=== PATIENT | male | born 1945 | race Hispanic/Latino ===

== ENCOUNTER → 2023-09-24 | Outpatient (CLI) | payer OTHER | END | disposition home or self-care (01) | LOC: SHCH 11:48 | PROVIDERS: ATTEND Internal Medicine Cardiovascular Disease | DX: I87.2 Venous insufficiency (chronic) (peripheral) (principal) | CPT/HCPCS: 93970 ==

== ENCOUNTER 2024-05-20 19:50 | Observation (INO) | payer MEDICARE ==
[~2024-05-20] VITALS: Ht 172.7 cm; Wt 81.4 kg
--- NOTE | 2024-05-20 19:57 | NUR ---
UA CUP PROVIDED
--- NOTE | 2024-05-20 22:22 | NUR ---
PATIENT TO CT
--- NOTE | 2024-05-20 22:30 | NUR ---
BLADDER SCAN READ 300CC; ED NOTIFIED
[2024-05-20 22:32] LABS: BASOPHILS # (AUTO) 0.04 K/uL (0.00-0.20); BASOPHILS % (AUTO) 0.3 % (0.0-5.0); EOSINOPHILS # (AUTO) 0.07 K/uL (0.00-0.70); EOSINOPHILS % (AUTO) 0.5 % (0.0-8.0); HEMATOCRIT 35.4 % (42-54); IMMATURE GRANULOCYTE ABSOLUTE 0.07 K/uL (0-1); LYMPHOCYTES # (AUTO) 1.4 K/uL (1.0-4.8); LYMPHOCYTES % (AUTO) 10.3 % (21.0-51.0); MEAN CORPUSCULAR HEMOGLOBIN 31.8 pg (27.0-33.0); MEAN CORPUSCULAR HGB CONC 33.1 g/dL (32.0-36.0); MEAN CORPUSCULAR VOLUME 96.2 fL (79-99); MONOCYTES # (AUTO) 0.8 K/uL (0.1-1.0); MONOCYTES % (AUTO) 5.7 % (3.0-13.0); NEUTROPHILS % (AUTO) 82.7 % (40.0-77.0); PLATELET COUNT (AUTO) 206 K/uL (130-400); RED BLOOD CELL COUNT(AUTO) 3.68 MIL/uL (4.50-6.20); RED CELL DISTRIBUTION WIDTH 12.4 % (11.0-15.5); WHITE BLOOD COUNT (AUTO) 13.3 K/uL (4.8-10.8)
--- NOTE | 2024-05-20 22:41 | HMCIMG ---
CT ABDOMEN/PELVIS W/O CONTRAST HISTORY: Abdominal pain COMPARISON: None TECHNIQUE: Multiple sequential axial images of the abdomen and pelvis were obtained from the dome of the diaphragm through symphysis pubis. Patient was not given contrast through intravenous route. Oral contrast was not given. FINDINGS: No pleural effusion is seen bilaterally. There is no evidence of parenchymal disease or pulmonary nodule of the visualized lower lungs. Degenerative changes of the thoracolumbar spine are present. The heart is not enlarged. Small hiatal hernia is seen. Coronary arterial calcifications are seen. The liver measures 18 cm. Calcified granuloma are seen in the spleen. Gallstones are seen in the gallbladder. Small bowel dilatation is seen with fluid-filled may be related to enteritis. The liver, spleen, adrenal glands and pancreas are unremarkable. There is no evidence of hydronephrosis bilaterally. No evidence of renal stone is seen. Fecal material is seen in the colon. There are normal size retroperitoneal and mesenteric lymph nodes. No ascites is seen. Atherosclerotic changes are present. No CT evidence of acute appendicitis is seen. Pelvic sidewalls are symmetric bilaterally. Bladder is well distended without wall thickening. IMPRESSION: 1. Gallstones in the gallbladder. Small bowel dilatation with fluid-filled may be related to enteritis. CT was performed with one or more following dose reduction techniques: automated exposure control, adjustment of the mA and kv according to patient's size, or use of a iterative reconstruction technique.
[2024-05-20 22:50] LABS: CREATININE 2.3 mg/dL (0.5-1.3); POTASSIUM 4.7 mmol/L (3.5-5.1)
[2024-05-21] VITALS (7 sets, daily range): BP systolic 138–171; BP diastolic 58–79; PULSE 79–94; RESP 18–20; TEMP 98.1–99; O2SAT 94–97
--- NOTE | 2024-05-21 00:32 | ERN ---
General Chief Complaint: Multiple Complaints Stated Complaint: HAVING TROUBLE GOING TO RR, HIGH BLOOD PRESSURE Time Seen by MD: 19:52 Source: patient History of Present Illness Initial Comments PATIENT IS A AN 78-YEAR-OLD MALE COMING IN TO BE EVALUATED FOR ABDOMINAL DISCOMFORT. PATIENT STATES THAT HE HAS NOT BEEN ABLE TO URINATE AND HAS BEEN HAVING PROBLEMS WITH CONSTIPATION. HE STATES HE DOES NOT KNOW IF HE HAS ANY ISSUES WITH THE KIDNEYS. Allergies: Coded Allergies: No Known Allergies (Unverified Allergy, Unknown, 05/20/24) Past Medical History Past Medical History: Diabetes-Type II, Hypertension, Other Medical History Other: SCIATIC Past Surgical History: Other Surgical History Other: NASAL ROS Dictation CONSTITUTIONAL: NO CHILLS, NO FEVER, NO WEAKNESS, NO DIAPHORESIS, NO MALAISE. HEAD/FACE: NO SIGNS OF TRAUMA. EENT: NO EYE PAIN, NO BLURRED VISION, NO TEARING, NO DOUBLE VISION, NO EAR PAIN, NO EAR DISCHARGE, NO NOSE PAIN, NO NASAL CONGESTION, NO THROAT PAIN, NO THROAT SWELLING, NO MOUTH PAIN. RESPIRATORY: NO COUGH, NO ORTHOPNEA, NO SOB, NO STRIDOR, NO WHEEZING. CARDIOVASCULAR: NO CHEST PAIN, NO EDEMA, NO PALPITATIONS, NO SYNCOPE. GASTROINTESTINAL/ABDOMINAL: NO ABDOMINAL PAIN, NO CONSTIPATION, NO DIARRHEA, NO NAUSEA, NO VOMITING. GENITOURINARY: NO ABNORMAL DISCHARGE, NO DYSURIA, NO FREQUENT URINATION, NO HEMATURIA. NO COMPLAINTS OF PAIN IN THE GENITALS. MUSCULOSKELETAL: NO BACK PAIN, NO GOUT, NO JOINT PAIN, NO JOINT SWELLING, NO MUSCLE PAIN, NO MUSCLE STIFFNESS, NO NECK PAIN. INTEGUMENTARY: NO CHANGE IN COLOR, NO CHANGE IN HAIR/NAILS, NO DRYNESS, NO LESION, NO LUMPS, NO RASH. NEUROLOGICAL/PSYCH: NO ANXIETY, NOT DEPRESSED, NO EMOTIONAL PROBLEM, NO HEADACHE, NO NUMBNESS, NO PRE-EXISTING DEFICIT, NO HISTORY OF SEIZURES, NO TREMORS, NO WEAKNESS. HEMATOLOGIC/LYMPHATIC: NOT ANEMIC, NO HISTORY OF BLOOD CLOTS, NO APPARENT BLEEDING, NO BRUISING, GLANDS NOT SWOLLEN. ALL SYSTEMS NEGATIVE, EXCEPT NOTED. Physical Exam Physical Exam Dictation VITAL SIGNS: REVIEWED. GENERAL APPEARANCE: ALERT, ORIENTED X3, NO ACUTE DISTRESS, OBESE. HEAD AND FACE: NON-TRAUMATIC. EYES: PERRL, PINK CONJUNCTIVAS, EYELID NO TRAUMA, ANTERIOR CHAMBER CLEAR. EARS: PINNAS INTACT AND NO SIGNS OF TRAUMA OR ERYTHEMA. EAR CANALS CLEAR AND NO DISCHARGE. TMS NO ERYTHEMA. NOSE: NO DISCHARGE, NO BLEEDING. OROPHARYNX: MOUTH NORMAL, TEETH NO CARIES, TONGUE PINK. PHARYNX CLEAR, NO ERYTHEMA. TONSILS NO EXUDATES, NO ABSCESSES NOTED. MUCOUS MEMBRANE MOIST. NECK: SUPPLE, NON-TENDER, NO THYROMEGALY, NO MASSES, NO JVD, NO BRUITS. BREAST: DEFERRED. CHEST: NO TENDERNESS, NO CREPITUS, NO PARADOXICAL MOVEMENT, NO RETRACTIONS. LUNGS: CLEAR, WELL-VENTILATED, SYMMETRIC, NO RALES, NO WHEEZING, NO RHONCHI, NO STRIDOR, GOOD BREATH SOUNDS BILATERALLY. HEART: REGULAR RATE, REGULAR RHYTHM, NO MURMUR, NO GALLOPS. VASCULAR: NO PERIPHERAL EDEMA. ABDOMEN: SOFT, POSITIVE BOWEL SOUNDS, NONDISTENDED, NO GUARDING, NONTENDER, NO REBOUND, NO MASSES NO HEPATOMEGALY, NO SPLENOMEGALY, NO EDWARDS'S SIGN, NO HERNIAS. RECTAL: DEFERRED. GENITAL: DEFERRED. NEUROLOGICAL: NORMAL SPEECH, GROSS MOTOR FUNCTION INTACT, GROSS SENSORY FUNCTION INTACT. MUSCULOSKELETAL: NECK NONTENDER, FULL RANGE OF MOTION, BACK NONTENDER, FULL RANGE OF MOTION. EXTREMITIES: NONTENDER, FULL RANGE OF MOTION. SKIN: COLOR PINK, DRY, NO TURGOR, NO RASH, NO LACERATIONS, NO ABRASIONS, NO CONTUSIONS. LYMPHATICS: DEFERRED. Results Laboratory and Microbiology Lab and Micro Result Laboratory Tests Test 05/20/24 22:27 05/21/24 02:19 White Blood Count 13.3 K/uL (4.8-10.8) H Red Blood Count 3.68 MIL/uL (4.50-6.20) L Hemoglobin 11.7 g/dL (14.0-18.0) L Hematocrit 35.4 % (42-54) L Mean Corpuscular Volume 96.2 fL (79-99) Mean Corpuscular Hemoglobin 31.8 pg (27.0-33.0) Mean Corpuscular Hemoglobin Concent 33.1 g/dL (32.0-36.0) Red Cell Distribution Width 12.4 % (11.0-15.5) Platelet Count 206 K/uL (130-400) Mean Platelet Volume 11.2 fL (7.5-10.5) H Immature Granulocyte % (Auto) 0.5 % (0-1) Neutrophils (%) (Auto) 82.7 % (40.0-77.0) H Lymphocytes (%) (Auto) 10.3 % (21.0-51.0) L Monocytes (%) (Auto) 5.7 % (3.0-13.0) Eosinophils (%) (Auto) 0.5 % (0.0-8.0) Basophils (%) (Auto) 0.3 % (0.0-5.0) Neutrophils # (Auto) 11.0 K/uL (1.8-7.7) H Lymphocytes # (Auto) 1.4 K/uL (1.0-4.8) Monocytes # (Auto) 0.8 K/uL (0.1-1.0) Eosinophils # (Auto) 0.07 K/uL (0.00-0.70) Basophils # (Auto) 0.04 K/uL (0.00-0.20) Absolute Immature Granulocyte (auto 0.07 K/uL (0-1) Nucleated Red Blood Cells 0.0 % (0.0-0.19) Sodium Level 140 mmol/L (136-145) Potassium Level 4.7 mmol/L (3.5-5.1) Chloride Level 105 mmol/L (101-111) Carbon Dioxide Level 22 mmol/L (21-32) Blood Urea Nitrogen 46 mg/dL (7-18) H Creatinine 2.3 mg/dL (0.5-1.3) H Glomerular Filtration Rate Calc 28 mL/min (>90) Random Glucose 272 mg/dL (70-105) H Total Calcium 9.1 mg/dL (8.5-10.1) Urine Color LIGHT-YELLOW (YELLOW) Urine Appearance CLEAR (CLEAR) Urine pH 5.0 (5.0-8.0) Urine Specific [place] 1.015 (1.001-1.031) Urine Protein NEGATIVE mg/dL (NEGATIVE) Urine Glucose (UA) >=1000 mg/dL (NEGATIVE) H Urine Ketones NEGATIVE mg/dL (NEGATIVE) Urine Occult Blood NEGATIVE (NEGATIVE) Urine Nitrate NEGATIVE (NEGATIVE) Urine Bilirubin NEGATIVE mg/dL (NEGATIVE) Urine Urobilinogen 0.2 mg/dL (0.2-1.0) Urine Leukocyte Esterase NEGATIVE Ann/uL Urine RBC 0-1 /HPF (0-1) Urine WBC 0-1 /HPF (0-1) Urine Bacteria None /HPF (None Seen) Labs Reviewed?: Yes EKG/XRAY/US/CT/MRI CT Scan Comment [facility] [address] [place], [place] [id number] IMAGING REPORT Signed PATIENT: TILA IVY MR#: [id number] : 1945 SEX: M AGE: 78 LOCATION: [facility] ORDER 00 STATUS: REG ER REPORT#: [id number] SERVICE 99 REASON: ABD PAIN ORDERING PHYSICIAN: BRENDA STILES MD PROCEDURE: ABD PEL WO - CT ABDOMEN/PELVIS W/O CONTRAST CT ABDOMEN/PELVIS W/O CONTRAST HISTORY: Abdominal pain COMPARISON: None TECHNIQUE: Multiple sequential axial images of the abdomen and pelvis were obtained from the dome of the diaphragm through symphysis pubis. Patient was not given contrast through intravenous route. Oral contrast was not given. FINDINGS: No pleural effusion is seen bilaterally. There is no evidence of parenchymal disease or pulmonary nodule of the visualized lower lungs. Degenerative changes of the thoracolumbar spine are present. The heart is not enlarged. Small hiatal hernia is seen. Coronary arterial calcifications are seen. The liver measures 18 cm. Calcified granuloma are seen in the spleen. Gallstones are seen in the gallbladder. Small bowel dilatation is seen with fluid-filled may be related to enteritis. The liver, spleen, adrenal glands and pancreas are unremarkable. There is no evidence of hydronephrosis bilaterally. No evidence of renal stone is seen. Fecal material is seen in the colon. There are normal size retroperitoneal and mesenteric lymph nodes. No ascites is seen. Atherosclerotic changes are present. No CT evidence of acute appendicitis is seen. Pelvic sidewalls are symmetric bilaterally. Bladder is well distended without wall thickening. IMPRESSION: 1. Gallstones in the gallbladder. Small bowel dilatation with fluid-filled may be related to enteritis. CT was performed with one or more following dose reduction techniques: automated exposure control, adjustment of the mA and kv according to patient's size, or use of a iterative reconstruction technique. DICTATED BY: SATYA THOMAS MD DATE: 05/20/242231 ELECTRONICALLY SIGNED BY: SATYA THOMAS MD DATE: 05/20/242240 [facility] MDM: DIFFERENTIAL DIAGNOSIS: PEDRO, DEHYDRATION, BLADDER OUTLET OBSTRUCTION, GASTROENTERITIS RATIONALE: TESTS CONSIDERED AND ORDERED SECONDARY TO SHARED DECISION MAKING INCLUDE: LABS, ECG AND RADIOLOGY PREVIOUS OUTSIDE RECORDS REVIEWED: OLD ER VISITS. RISK OF COMPLICATION AND/OR MORBIDITY OR MORTALITY OF PATIENT MANAGEMENT: NONE MEDICATIONS-PER MEDICATION RECONCILIATION NEED FOR HOSPITALIZATION: PATIENT DOES MEET CRITERIA FOR HOSPITALIZATION. NEED FOR EMERGENCY MAJOR/MINOR SURGERY: NO THERE ARE NO SOCIAL CONCERNS WITH THIS PATIENT. PRESCRIPTION DRUG MANAGEMENT PRESCRIPTIONS WILL INCLUDE SYMPTOMATIC CARE PATIENT'S PRIOR EXTERNAL MEDICAL RECORDS FROM OTHER ER VISITS WERE REVIEWED BY ME INDICATED. PRIOR TESTING AND RESULTS FROM PREVIOUS VISITS WERE REVIEWED. PRIOR TESTS WERE TAKEN INTO ACCOUNT WITH MEDICAL DECISION MAKING AND RESOURCE UTILIZATION, INDEPENDENT HISTORIAN/HISTORIANS WERE USED TO OBTAIN COMPLETE MEDICAL HISTORY. I INDEPENDENTLY INTERPRETED THE TEST THAT WERE PERFORMED, RESULTS WERE REVIEWED BY ME AND CONSIDERED FINDINGS ON RADIOLOGY IF ORDERED. MEDICAL MANAGEMENT AND EXAMINATION INTERPRETATION DISCUSSIONS WERE HAD BY ME WITH OTHER QUALIFIED HEALTHCARE PROFESSIONALS INDICATED FOR THE PATIENT'S CARE. PATIENT IS A AN 78-YEAR-OLD MALE COMING IN TO BE EVALUATED FOR ABDOMINAL PAIN. CT DISCLOSE GASTROENTERITIS, PATIENT DID PRESENT WITH AN AREA. CAMARGO WAS PLACED I HAVE 100 ML OF URINE OUT PATIENT WILL BE ADMITTED UNDER THE CARE OF [facility] FOR ONGOING EVALUATION OF PEDRO POSSIBLE BLADDER OUTLET OBSTRUCTION. ED Course Orders Procedure Category Date Status Time Cbc With Differential LAB 05/20/24 Complete 22:00 Basic Metabolic Panel LAB 05/20/24 Complete 22:00 Urinalysis LAB 05/20/24 Complete W/Microscopic 22:00 Ct Abdomen/Pelvis W/O CT 05/20/24 Resulted Contrast 22:00 Nurse Driven Camargo PAO 05/21/24 In Process Removal Pro 00:56 Vital Signs Date Time Temp Pulse Resp B/P (MAP) Pulse Ox O2 Delivery O2 Flow Rate FiO2 05/20/24 23:28 98.4 88 20 152/78 97 Room Air* 0 21 05/20/24 22:18 98.4 92 18 162/86 98 Room Air* 0 05/20/24 19:53 97.2 75 16 156/77 96 Room Air DX & DISP Disposition: Inpatient Decision to Admit Time: 02:48 Departure Impression: Primary Impression: PEDRO (acute kidney injury) Additional Impression: Bladder outlet obstruction Condition: Stable Referrals: JOSE VOSS (PCP) BRENDA STILES MD May 21, 2024 00:32
--- NOTE | 2024-05-21 00:57 | NUR ---
PATIENT STILL UNABLE TO VOID; ORDER GIVEN FOR CAMARGO CATHETER
[2024-05-21 02:32] LABS: APPEARANCE,URINE CLEAR (CLEAR); BILIRUBIN,URINE NEGATIVE (NEGATIVE); COLOR,URINE LIGHT-YELLOW (YELLOW); GLUCOSE, URINE (UA) >=1000 mg/dL (NEGATIVE); KETONES,URINE NEGATIVE (NEGATIVE); LEUKOCYTE ESTERASE ,URINE NEGATIVE Leu/uL (NEGATIVE); MUCUS,URINE RARE LPF (None Seen); NITRATE,URINE NEGATIVE (NEGATIVE); OCCULT BLOOD,URINE NEGATIVE (NEGATIVE); PROTEIN,URINE NEGATIVE (NEGATIVE); RBC,URINE 0-1 /HPF (0-1); UROBILINOGEN,URINE 0.2 mg/dL (0.2-1.0); WBC,URINE 0-1 /HPF (0-1)
[2024-05-21] MEDS ORDERED: GLUCAGON 1MG KIT 1 MG ML IM PRN ×2 (03:30→09:30)
[2024-05-21] MEDS ORDERED: MAG/ALUM/SIMETH 30 ML UDCUP PO PRN ×2 (03:30→09:30)
[2024-05-21] MEDS ORDERED: hydrALAZine 20MG/ML VIAL IV PRN ×2 (03:30→09:30)
[2024-05-21] MEDS ORDERED: ondanSETRON 4MG INJ IV PRN ×2 (03:30→09:30)
[2024-05-21] MEDS ORDERED: LACTULOSE 20 GM/30 ML UDCUP PO PRN ×2 (03:30→09:30)
[2024-05-21] MEDS ORDERED: guaiFENesin-DM 200/20MG 10ML PO PRN ×2 (03:30→09:30)
[2024-05-21] MEDS ORDERED: NITROGLYCERIN 0.4 MG SL TAB SL PRN ×2 (03:30→09:30)
[2024-05-21] MEDS ORDERED: DEXTROSE 50%-WATER 50 ML DISP.SYRIN IV PRN ×2 (03:30→09:30)
--- NOTE | 2024-05-21 03:30 | HP ---
[facility] HISTORY & PHYSICAL Date Patient Seen: May 21, 2024 Time of Visit: 03:18 Supervising Physician: [ DR. ALMA NAYAK] Primary Care Physician: [ ] Outpatient Specialists: [ ] Inpatient Consults: [ ] PROBLEM LIST: 1. ACUTE ON CHRONIC KIDNEY INJURY 2. ACUTE URINARY RETENTION 3. ACUTE ENTERITIS 4. ESSENTIAL HYPERTENSION 5. CHOLELITHIASIS INCIDENTAL FINDINGS 6. DIABETES TYPE 2 UNCONTROLLED CHIEF COMPLAINT: UNABLE TO TO URINATE HPI: Patient is a 78-year-old male with past medical history significant for diabetes type 2, hypertension, hyperlipidemia, chronic kidney disease, has been followed by Dr. Blair, and a surgical history of sinus plasty, presented to the emergency department complaining of difficulty voiding for two days. Patient reports that for the past two days, he is able produced drops of urine. He feels the urge to void but unable to do so. In addition, patient reports constipation. The workup in the emergency department shows a WBC of 13.3, BUN of 46, creatinine of 2.3, GFR of 28, glucose of 272. CT abdomen and pelvis without contrast shows gallstone small bowel dilatation may be related to enteritis. Patient denies fever, chills, nausea, vomiting, abdominal pain, shortness of breath, dizziness, or any other symptoms. In the emergency department, Mcbride catheter has been inserted. In addition, patient received hydralazine 10 mg IV. Patient will be admitted to medical floor for further evaluation and treatment. PAST MEDICAL HX: see above PAST SURGICAL HX: noncontributory SOCIAL HISTORY: No tobacco, ETOH, or illicit drug use Coded Allergies: No Known Allergies (Unverified Allergy, Unknown, 05/20/24) REVIEW OF SYSTEMS: 12 point ROS reviewed with patient. Pertinent positives mentioned above. Otherwise negative. PHYSICAL EXAM: GENERAL: alert, weak, awake oriented x 3 HEENT: EOMI, Sclera non icteric, moist mucosa NECK: Supple, no JVD, trachea midline LUNGS: Clear breath sounds bilaterally. No wheezes HEART: Regular rate and rhythm. Normal S1 and S2, without murmurs ABD: Abdomen soft, nontender. Bowel sounds present EXT: No clubbing cyanosis or edema NEURO: Alert and oriented to person, follows commands Vital Signs (last 8hr) Date Time Temp Pulse Resp B/P (MAP) Pulse Ox O2 Delivery O2 Flow Rate FiO2 05/20/24 23:28 98.4 88 20 152/78 97 Room Air* 0 21 05/20/24 22:18 98.4 92 18 162/86 98 Room Air* 0 05/20/24 19:53 97.2 75 16 156/77 96 Room Air LABS: Hematology Labs: Test 05/20/24 22:27 Range/Units White Blood Count 13.3 H 4.8-10.8 K/uL Red Blood Count 3.68 L 4.50-6.20 MIL/uL Hemoglobin 11.7 L 14.0-18.0 g/dL Hematocrit 35.4 L 42-54 % Mean Corpuscular Volume 96.2 79-99 fL Mean Corpuscular Hemoglobin 31.8 27.0-33.0 pg Mean Corpuscular Hemoglobin Concent 33.1 32.0-36.0 g/dL Red Cell Distribution Width 12.4 11.0-15.5 % Platelet Count 206 130-400 K/uL Mean Platelet Volume 11.2 H 7.5-10.5 fL Immature Granulocyte % (Auto) 0.5 0-1 % Neutrophils (%) (Auto) 82.7 H 40.0-77.0 % Lymphocytes (%) (Auto) 10.3 L 21.0-51.0 % Monocytes (%) (Auto) 5.7 3.0-13.0 % Eosinophils (%) (Auto) 0.5 0.0-8.0 % Basophils (%) (Auto) 0.3 0.0-5.0 % Neutrophils # (Auto) 11.0 H 1.8-7.7 K/uL Lymphocytes # (Auto) 1.4 1.0-4.8 K/uL Monocytes # (Auto) 0.8 0.1-1.0 K/uL Eosinophils # (Auto) 0.07 0.00-0.70 K/uL Basophils # (Auto) 0.04 0.00-0.20 K/uL Absolute Immature Granulocyte (auto 0.07 0-1 K/uL Nucleated Red Blood Cells 0.0 0.0-0.19 % Chemistry Labs: Test 05/20/24 22:27 Range/Units Sodium Level 140 136-145 mmol/L Potassium Level 4.7 3.5-5.1 mmol/L Chloride Level 105 101-111 mmol/L Carbon Dioxide Level 22 21-32 mmol/L Blood Urea Nitrogen 46 H 7-18 mg/dL Creatinine 2.3 H 0.5-1.3 mg/dL Glomerular Filtration Rate Calc 28 >90 mL/min Random Glucose 272 H 70-105 mg/dL Total Calcium 9.1 8.5-10.1 mg/dL DIAGNOSTICS / RADIOLOGY RESULTS: [ ] PLAN NEURO: Minimize central acting medications as possible. Maintain fall precautions, adequate lighting during the day PULMONARY: Supplemental 02 as needed. Maintain aspiration precautions at all times CARDIOVASCULAR: Follow hemodynamics. Vital signs per facility protocol GI & NUTRITION: Continue with nutritional support. Continue stool softeners and laxatives as needed. KIDNEYS & ELECTROLYTES: Strict monitoring of intake, output and overall fluid balance. Avoid nephrotoxic medications to the extent possible. Medications to be dosed according to renal function. Monitor electrolytes and replace as needed Start NS at 100 mL/hour Nephrology is consulted pending anticipation of further recommendations Monitor creatinine trend ENDOCRINE: Maintain blood glucose between 100-180 at all times. Hypoglycemia protocol in place Obtain hemoglobin A1c INFECTIOUS DISEASE: Trend temperature, WBC and procalcitonin level Follow cultures, deescalate antibiotics as soon as possible. Panculture if new onset fever Metronidazole 500 mg IV every 8 hours ONCOLOGY/HEMATOLOGY/COAGULATION: Monitor for s/s of bleeding Monitor hemoglobin, coagulation studies as needed SKIN: Pressure ulcer prevention per facility protocol Specialty mattress ORTHO/REHAB: Continue PT/OT Prophylaxis: Continue GI and DVT prophylaxis Code Status: Full Resuscitation Disposition: TBD Other: Total patient care time exceeds 35 minutes excluding all procedures. Case discussed with Dr.Jairo Nayak and the above plan was formulated. OLIVE MARIN May 21, 2024 03:30
[2024-05-21] MEDS: metRONIDazole 500MG/100ML BAG IV SCH ×2 (03:39→12:37)
[2024-05-21] MEDS: LACTATED RINGERS 1000ML 1,000 ML IV SCH ×2 (03:39→09:43)
[2024-05-21] MEDS ORDERED: ASCO500T20 PO (04:06)
[2024-05-21 04:10] LABS: THYROID STIMULATING HORMONE 1.36 uIU/mL (0.36-3.74)
[2024-05-21] MEDS ORDERED: ATOR20TA65 PO (04:11)
[2024-05-21] MEDS ORDERED: SODI650T PO (04:11)
[2024-05-21] MEDS ORDERED: CARV6.25 PO (04:11)
[2024-05-21] MEDS ORDERED: LOSA100T59 PO (04:11)
[2024-05-21] MEDS ORDERED: FURO20TA4 PO (04:11)
[2024-05-21] MEDS ORDERED: FERR-82 PO (04:11)
[2024-05-21] MEDS ORDERED: DAPA10TA PO (04:11)
[2024-05-21] MEDS ORDERED: HYDR25TA67 PO (04:11)
[2024-05-21 04:29] LABS: INFLUENZA TYPE A Negative For Type A (NEGATIVE); INFLUENZA TYPE B Negative For Type B (NEGATIVE)
[2024-05-21 04:50] LABS: COVID19 (SARS ANTIGEN RAPID) PRESUMPTIVE NEGATIVE (NEGATIVE)
[2024-05-21] MEDS: INSULIN humuLIN R 100 UNIT/ML 3ML SQ SCH ×2 (07:41→11:30)
[2024-05-21 08:31] LABS: ALBUMIN 3.2 g/dL (3.5-5.0); CREATININE 1.9 mg/dL (0.5-1.3); POTASSIUM 4.8 mmol/L (3.5-5.1); TOTAL PROTEIN, SERUM 6.4 g/dL (6.0-8.3)
[2024-05-21] MEDS ORDERED: PSYLLIUM SEED 1 EACH PACKET PO SCH (09:00)
[2024-05-21] MEDS ORDERED: tamSULOsin HCL 0.4 MG CAP.ER.24H PO SCH (09:00)
[2024-05-21] MEDS ORDERED: hydrALAZine 25MG TABLET PO SCH (09:00)
[2024-05-21] MEDS ORDERED: carVEDIlol 6.25 MG TABLET PO SCH (09:00)
[2024-05-21] MEDS: PSYLLIUM SEED 1 EACH PACKET PO SCH (09:43)
[2024-05-21] MEDS: tamSULOsin HCL 0.4 MG CAP.ER.24H PO SCH (09:43)
[2024-05-21] MEDS: CEFTRIAXONE 2GM VIAL IVPB SCH (09:43)
--- NOTE | 2024-05-21 12:20 | PN ---
[facility] PROGRESS NOTE Date Patient Seen: May 21, 2024 Time of Visit: 12:20 Supervising Physician: Dr. Esdras Nayak Primary Care Physician: Dr. Karely Valdez Outpatient Specialists: [facility] Inpatient Consults:Dr. Blair (Nephrology) PROBLEM LIST: Acute urinary retention S/P Mcbride insertion in ER Acute kidney injury on CKD Acute enteritis per CT abdomen Hypertension Constipation Cholelithiasis, no abdominal pain Diabetes mellitus type 2 Octogenarian INTERVAL HISTORY: Patient assessed at bedside. AAOX3. Currently on room air. Mcbride catheter with clear yellow urine to BSD. Denies any abdominal pain, nausea or vomiting. Patient states he took laxative magnesium citrate last night because he suffers from constipation and now he has had multiple BM's. Tolerating diet well. Patient states he has never had prostate problem before and had prostate checked a few years ago. Family at bedside, questions answered. Plan: Remove Mcbride, check bladder scan If retains 300ml or more, insert Mcbride and follow up with urology outpatient Continue on Flomax, discharge with RX for Flomax Hold home dose of Lasix and Losartan Nephrology pending to evaluate AM labs Possible discharge in AM if stable REVIEW OF SYSTEMS: 12 point ROS reviewed with patient. Pertinent positives mentioned above. Otherwise negative. PHYSICAL EXAM: GENERAL: alert, weak, awake oriented x 3 HEENT: EOMI, Sclera non icteric, moist mucosa NECK: Supple, no JVD, trachea midline LUNGS: Clear breath sounds bilaterally. No wheezes HEART: Regular rate and rhythm. Normal S1 and S2, without murmurs ABD: Abdomen soft, nontender. Bowel sounds present EXT: No clubbing cyanosis or edema NEURO: Alert and oriented to person, follows commands Vital Signs (last 8hr) Date Time Temp Pulse Resp B/P (MAP) Pulse Ox O2 Delivery O2 Flow Rate FiO2 05/21/24 12:00 98.4 88 18 152/79 97 Room Air 21 05/21/24 08:00 98.1 79 18 138/58 97 Room Air 21 LABS: Hematology Labs: Test 05/20/24 22:27 Range/Units White Blood Count 13.3 H 4.8-10.8 K/uL Red Blood Count 3.68 L 4.50-6.20 MIL/uL Hemoglobin 11.7 L 14.0-18.0 g/dL Hematocrit 35.4 L 42-54 % Mean Corpuscular Volume 96.2 79-99 fL Mean Corpuscular Hemoglobin 31.8 27.0-33.0 pg Mean Corpuscular Hemoglobin Concent 33.1 32.0-36.0 g/dL Red Cell Distribution Width 12.4 11.0-15.5 % Platelet Count 206 130-400 K/uL Mean Platelet Volume 11.2 H 7.5-10.5 fL Immature Granulocyte % (Auto) 0.5 0-1 % Neutrophils (%) (Auto) 82.7 H 40.0-77.0 % Lymphocytes (%) (Auto) 10.3 L 21.0-51.0 % Monocytes (%) (Auto) 5.7 3.0-13.0 % Eosinophils (%) (Auto) 0.5 0.0-8.0 % Basophils (%) (Auto) 0.3 0.0-5.0 % Neutrophils # (Auto) 11.0 H 1.8-7.7 K/uL Lymphocytes # (Auto) 1.4 1.0-4.8 K/uL Monocytes # (Auto) 0.8 0.1-1.0 K/uL Eosinophils # (Auto) 0.07 0.00-0.70 K/uL Basophils # (Auto) 0.04 0.00-0.20 K/uL Absolute Immature Granulocyte (auto 0.07 0-1 K/uL Nucleated Red Blood Cells 0.0 0.0-0.19 % Chemistry Labs: Test 05/21/24 11:58 05/21/24 06:50 05/20/24 22:27 Range/Units Whole Blood Glucose 151 H 70-110 MG/DL Sodium Level 142 136-145 mmol/L Potassium Level 4.8 3.5-5.1 mmol/L Chloride Level 109 101-111 mmol/L Carbon Dioxide Level 24 21-32 mmol/L Blood Urea Nitrogen 46 H 7-18 mg/dL Creatinine 1.9 H 0.5-1.3 mg/dL Glomerular Filtration Rate Calc 35 >90 mL/min Random Glucose 202 H 70-105 mg/dL Total Calcium 8.7 8.5-10.1 mg/dL Total Bilirubin 1.0 0.2-1.0 mg/dL Aspartate Amino Transf (AST/SGOT) 22 10-37 U/L Alanine Aminotransferase (ALT/SGPT) 30 12-78 U/L Alkaline Phosphatase 118 50-136 U/L Total Protein 6.4 6.0-8.3 g/dL Albumin 3.2 L 3.5-5.0 g/dL Hemoglobin A1c 9.0 H 4.0-6.0 % Estimated Average Glucose (eAG) 212 H 70-126 mg/dL Triglycerides Level 111 30-200 mg/dL Cholesterol Level 140 <200 mg/dL LDL Cholesterol 75 0-99 mg/dL HDL Cholesterol 43 29-71 mg/dL Thyroid Stimulating Hormone (TSH) 1.36 0.36-3.74 uIU/mL DIAGNOSTICS / RADIOLOGY RESULTS: REASON: ABD PAIN ORDERING PHYSICIAN: BRENDA STILES MD PROCEDURE: ABD PEL WO - CT ABDOMEN/PELVIS W/O CONTRAST CT ABDOMEN/PELVIS W/O CONTRAST HISTORY: Abdominal pain COMPARISON: None TECHNIQUE: Multiple sequential axial images of the abdomen and pelvis were obtained from the dome of the diaphragm through symphysis pubis. Patient was not given contrast through intravenous route. Oral contrast was not given. FINDINGS: No pleural effusion is seen bilaterally. There is no evidence of parenchymal disease or pulmonary nodule of the visualized lower lungs. Degenerative changes of the thoracolumbar spine are present. The heart is not enlarged. Small hiatal hernia is seen. Coronary arterial calcifications are seen. The liver measures 18 cm. Calcified granuloma are seen in the spleen. Gallstones are seen in the gallbladder. Small bowel dilatation is seen with fluid-filled may be related to enteritis. The liver, spleen, adrenal glands and pancreas are unremarkable. There is no evidence of hydronephrosis bilaterally. No evidence of renal stone is seen. Fecal material is seen in the colon. There are normal size retroperitoneal and mesenteric lymph nodes. No ascites is seen. Atherosclerotic changes are present. No CT evidence of acute appendicitis is seen. Pelvic sidewalls are symmetric bilaterally. Bladder is well distended without wall thickening. IMPRESSION: 1. Gallstones in the gallbladder. Small bowel dilatation with fluid-filled may be related to enteritis. PLAN NEURO: Minimize central acting medications as possible. Maintain fall precautions, adequate lighting during the day PULMONARY: Supplemental 02 as needed. Maintain aspiration precautions at all times CARDIOVASCULAR: Follow hemodynamics. Vital signs per facility protocol GI & NUTRITION: Continue with nutritional support. Continue stool softeners and laxatives as needed. KIDNEYS & ELECTROLYTES: Strict monitoring of intake, output and overall fluid balance. Avoid nephrotoxic medications to the extent possible. Medications to be dosed according to renal function. Monitor electrolytes and replace as needed NS at 100 mL/hour Monitor creatinine trend ENDOCRINE: Maintain blood glucose between 100-180 at all times. Hypoglycemia protocol in place INFECTIOUS DISEASE: Trend temperature, WBC and procalcitonin level Follow cultures, deescalate antibiotics as soon as possible. Panculture if new onset fever Metronidazole 500 mg IV every 8 hours, Rocephin for empiric coverage due to leukocytosis ONCOLOGY/HEMATOLOGY/COAGULATION: Monitor for s/s of bleeding Monitor hemoglobin, coagulation studies as needed SKIN: Pressure ulcer prevention per facility protocol Specialty mattress ORTHO/REHAB: Continue PT/OT Prophylaxis: Continue GI and DVT prophylaxis Code Status: Full Resuscitation Disposition: Home once medically cleared JOSE JUAN NAYAK May 21, 2024 12:20
--- NOTE | 2024-05-21 14:10 | NUR ---
CAMARGO CAMARGO REMOVED. PT TOLERATED WELL. DENIES PAIN AT THE MOMENT DUE TO VOID 05/21/242009
--- NOTE | 2024-05-21 16:05 | NUR ---
PT VOIDED PT VOIDED 100 ML. DENIES ANY PAIN
[2024-05-21] MEDS: hydrALAZine 25MG TABLET PO SCH (20:38)
[2024-05-21] MEDS: atorVAStatin 20 MG TABLET PO SCH (20:38)
[2024-05-21] MEDS: carVEDIlol 6.25 MG TABLET PO SCH (20:38)
[2024-05-21] MEDS ORDERED: atorVAStatin 20 MG TABLET PO SCH (21:00)
--- NOTE | 2024-05-21 23:57 | NUR ---
PATIENT CALLED NURSING STAFF STATING "FEELS BLOOD SUGAR IS LOW". RBS 58 MG/DL. GAVE PATIENT ORANGE JUICE WITH 2 SUGAR PACKETS, SANDWICH, APPLE SAUCE, JELLO, AND PUDDING. WILL CONTINUE TO MONITOR.
--- NOTE | 2024-05-22 01:52 | NUR ---
PATIENT REQUESTED TO HAVE BLOOD GLUCOSE RECHECKED AT THIS TIME. RBS 140 MG/DL. NO DIAPHORESIS NOTED, NO TACHYPNEA NOTED, PATIENT RESTING IN BED. RESPIRATIONS EVEN AND UNLABORED. NO SIGNS OR SYMPTOMS OF DISCOMFORT OR DISTRESS NOTED AT THIS TIME.
[2024-05-22 02:02] VITALS: BP 135/60; PULSE 77; RESP 18; TEMP 98.3
[2024-05-22 04:35] VITALS: BP 145/68; PULSE 70; RESP 18; TEMP 98.2
[2024-05-22 05:48] LABS: ALBUMIN 2.5 g/dL (3.5-5.0); BILIRUBIN,TOTAL 0.9 mg/dL (0.2-1.0); CREATININE 1.9 mg/dL (0.5-1.3); MAGNESIUM 2.6 mg/dL (1.80-2.40); POTASSIUM 4.5 mmol/L (3.5-5.1); TOTAL PROTEIN, SERUM 5.4 g/dL (6.0-8.3)
[2024-05-22 05:49] LABS: HEMATOCRIT 27.8 % (42-54); MEAN CORPUSCULAR HEMOGLOBIN 32.2 pg (27.0-33.0); MEAN CORPUSCULAR HGB CONC 33.1 g/dL (32.0-36.0); MEAN CORPUSCULAR VOLUME 97.2 fL (79-99); RED BLOOD CELL COUNT(AUTO) 2.86 MIL/uL (4.50-6.20); RED CELL DISTRIBUTION WIDTH 12.5 % (11.0-15.5)
[2024-05-22 07:57] VITALS: O2SAT 95
[2024-05-22] MEDS: polyETHYLene GLYCol 3350 17 GM POWD.PACK PO SCH (08:00)
--- NOTE | 2024-05-22 08:00 | NUR ---
REFUSED MED PATIENT REFUSED AM METAMUCIL AND POLYTHYLENE GLYCOL DUE TO COMPLAINTS OF LOOSE STOOLS.
[2024-05-22 08:23] VITALS: BP 154/69; PULSE 72; RESP 20; TEMP 97.9
[2024-05-22 12:25] VITALS: BP 150/71; PULSE 71; RESP 16; TEMP 98.5
--- NOTE | 2024-05-22 13:32 | NUR ---
REFUSED MED METAMUCIL REFUSED DUE TO COMPLAINTS OF LOOSE STOOLS
--- NOTE | 2024-05-22 14:53 | CONS ---
CONSULTATION NOTE Date of Service: May 22, 2024 Reason for Consultation: Abnormal Renal Function HISTORY OF PRESENT ILLNESS: 78 y/ o male with a PMH of CKD3b, HTN with renal manifestation, anemia of CKD and DM2 with nephropathy. last seen in clinic [id number], renal function GFR 3 6cc/min, Cr 1.86 and BUN 41. Patient presented to the ED due difficulty urinating. Was found to have +/-300cc of urine with bladder scan and carter placed. CT There is no evidence of hydronephrosis bilaterally. Renal function decline from baseline on admission GFR 28 and Cr 2.3. Examined at bedside denies fever chills and pain. Carter has been DC. REVIEW OF SYSTEMS CONSTITUTIONAL: Denies fever, chills, or fatigue. HEAD/FACE: No signs of trauma. EENT: Denies eye pain, blurred vision, double vision, or light sensitivity. RESPIRATORY: Denies shortness of breath, cough, wheezing CARDIOVASCULAR: Denies chest pain, palpitation, syncope GASTROINTESTINAL/ABDOMINAL: Denies abdominal pain, constipation, diarrhea, nausea or vomiting GENITOURINARY: Denies dysuria or hematuria. MUSCULOSKELETAL: Denies joint pain, tenderness, or trauma. INTEGUMENTARY: Denies rash or itchiness NEUROLOGICAL/PSYCH: Denies anxiety, depression, heat or cold intolerance. PAST MEDICAL HISTORY: Refer to [facility] Coded Allergies: No Known Allergies (Unverified Allergy, Unknown, 05/20/24) PHYSICAL EXAM EYES: Anicteric. Pupils equal and reactive. HENT: No oral thrush seen, moist Oral mucosa NECK: Supple, no JVD or thyromegaly. LUNGS: Good air entry. No rales, no rhonchi. CARDIOVASCULAR: S1, S2 regular. No murmur heard. ABDOMEN: Soft, non tender, bowel sounds present, no organomegaly CENTRAL NERVOUS SYSTEM: Awake, alert, oriented x 3. No focal deficits. SKIN: No rashes, no swelling. LYMPHATICS: No peripheral lymphadenopathy MUSCULOSKELETAL: No joint swelling, erythema or tenderness. EXTREMITIES: No cyanosis or clubbing BACK: No deformity, no pressure ulcer. GENITOURINARY: No dysuria or hematuria Vital Sign (Last 24 Hours) 05/22/24 05/22/24 07:57 12:25 Temp 98.4 Pulse 71 Resp 16 B/P (MAP) 150/71 Pulse Ox 96 O2 Delivery Room Air* O2 Flow Rate 0 FiO2 21 Intake & Output (last 24hrs) 05/21/24 05/21/24 05/22/24 15:00 23:00 07:00 Intake Total 1600 ml Balance 1600 ml LABS: Laboratory: Test 05/22/24 11:45 05/22/24 05:08 05/21/24 05:58 05/21/24 03:59 Range/Units Whole Blood Glucose 153 H 70-110 MG/DL White Blood Count 7.0 4.8-10.8 K/uL Red Blood Count 2.86 L 4.50-6.20 MIL/uL Hemoglobin 9.2 #L 14.0-18.0 g/dL Hematocrit 27.8 #L 42-54 % Mean Corpuscular Volume 97.2 79-99 fL Mean Corpuscular Hemoglobin 32.2 27.0-33.0 pg Mean Corpuscular Hemoglobin Concent 33.1 32.0-36.0 g/dL Red Cell Distribution Width 12.5 11.0-15.5 % Platelet Count 142 # 130-400 K/uL Mean Platelet Volume 11.4 H 7.5-10.5 fL Nucleated Red Blood Cells 0.0 0.0-0.19 % Sodium Level 137 136-145 mmol/L Potassium Level 4.5 3.5-5.1 mmol/L Chloride Level 105 101-111 mmol/L Carbon Dioxide Level 25 21-32 mmol/L Blood Urea Nitrogen 38 H 7-18 mg/dL Creatinine 1.9 H 0.5-1.3 mg/dL Glomerular Filtration Rate Calc 35 >90 mL/min Random Glucose 140 H 70-105 mg/dL Total Calcium 8.1 L 8.5-10.1 mg/dL Magnesium Level 2.60 H 1.80-2.40 mg/dL Total Bilirubin 0.9 0.2-1.0 mg/dL Aspartate Amino Transf (AST/SGOT) 30 10-37 U/L Alanine Aminotransferase (ALT/SGPT) 21 # 12-78 U/L Alkaline Phosphatase 83 # 50-136 U/L Total Protein 5.4 L 6.0-8.3 g/dL Albumin 2.5 #L 3.5-5.0 g/dL Stool Occult Blood NEGATIVE NEGATIVE Influenza Type A Antigen Negative For Type A NEGATIVE Influenza Type B Antigen Negative For Type B NEGATIVE SARS-CoV-2 Antigen (Rapid) PRESUMPTIVE NEGATIVE NEGATIVE Test 05/21/24 02:19 05/20/24 22:27 Range/Units Urine Color LIGHT-YELLOW YELLOW Urine Appearance CLEAR CLEAR Urine pH 5.0 5.0-8.0 Urine Specific [place] 1.015 1.001-1.031 Urine Protein NEGATIVE NEGATIVE mg/dL Urine Glucose (UA) >=1000 H NEGATIVE mg/dL Urine Ketones NEGATIVE NEGATIVE mg/dL Urine Occult Blood NEGATIVE NEGATIVE Urine Nitrate NEGATIVE NEGATIVE Urine Bilirubin NEGATIVE NEGATIVE mg/dL Urine Urobilinogen 0.2 0.2-1.0 mg/dL Urine Leukocyte Esterase NEGATIVE NEGATIVE Ann/uL Urine RBC 0-1 0-1 /HPF Urine WBC 0-1 0-1 /HPF Urine Bacteria None None Seen /HPF Immature Granulocyte % (Auto) 0.5 0-1 % Neutrophils (%) (Auto) 82.7 H 40.0-77.0 % Lymphocytes (%) (Auto) 10.3 L 21.0-51.0 % Monocytes (%) (Auto) 5.7 3.0-13.0 % Eosinophils (%) (Auto) 0.5 0.0-8.0 % Basophils (%) (Auto) 0.3 0.0-5.0 % Neutrophils # (Auto) 11.0 H 1.8-7.7 K/uL Lymphocytes # (Auto) 1.4 1.0-4.8 K/uL Monocytes # (Auto) 0.8 0.1-1.0 K/uL Eosinophils # (Auto) 0.07 0.00-0.70 K/uL Basophils # (Auto) 0.04 0.00-0.20 K/uL Absolute Immature Granulocyte (auto 0.07 0-1 K/uL Hemoglobin A1c 9.0 H 4.0-6.0 % Estimated Average Glucose (eAG) 212 H 70-126 mg/dL Triglycerides Level 111 30-200 mg/dL Cholesterol Level 140 <200 mg/dL LDL Cholesterol 75 0-99 mg/dL HDL Cholesterol 43 29-71 mg/dL Thyroid Stimulating Hormone (TSH) 1.36 0.36-3.74 uIU/mL DIAGNOSTICS / RADIOLOGY: CT : There is no evidence of hydronephrosis bilaterally. ASSESSMENT: PEDRO on CKD3b, last known renal function [id number], renal function GFR 36cc/min, Cr 1.86 and BUN 41 Dm2 with nephropathy HTN with renal manifestation Anemia of CKD PLAN: Monitor renal function: some improvement from admission Dose to renal Clearance Fluid in take 1.5L QD monitor I's and O's Monitor Electrolytes No need for [employer] Continue current POC SALOME MEADE May 22, 2024 14:53
[2024-05-22 15:51] VITALS: BP 149/72; PULSE 71; RESP 18; TEMP 98.2
--- NOTE | 2024-05-22 16:00 | NUR ---
DISCHARGE PERIPHERAL IV DISCONTINUED. DISCHARGE INSTRUCTIONS AND EDUCATIONAL MATERIAL PROVIDED AND REVIEWED WITH PATIENT AND FAMILY. PATIENT AND FAMILY AWARE OF WRITTEN PRESCRIPTION AND HOW TO HOME DESIGNER AT PREFERRED PHARMACY. PATIENT AND FAMILY AWARE TO FOLLOW UP WITH UROLOGY AND NEPHROLOGY WITHIN 3-5 DAYS. PATIENT AND FAMILY AWARE TO FOLLOW UP WITH PCP IN 3-5 DAYS. ALL QUESTIONS ANSWERED.
--- NOTE | 2024-05-22 21:40 | DS ---
[facility] DISCHARGE SUMMARY Date Patient Seen: May 22, 2024 Time of Visit: 1249 Supervising Physician: Dr. Magnaa Primary Care Physician: Dr. Karely Valdez Outpatient Specialists: [facility] Inpatient Consults:Dr. Blair (Nephrology) PROBLEM LIST: Acute urinary retention S/P Mcbride insertion in ER, resolved Acute kidney injury on CKD, back to baseline Acute enteritis per CT abdomen Hypertension Constipation Cholelithiasis, no abdominal pain Diabetes mellitus type 2 Octogenarian HOSPITAL COURSE: HPI (per admitting provider) Patient is a 78-year-old male with past medical history significant for diabetes type 2, hypertension, hyperlipidemia, chronic kidney disease, has been followed by Dr. Blair, and a surgical history of sinus plasty, presented to the emergency department complaining of difficulty voiding for two days. Patient reports that for the past two days, he is able produced drops of urine. He feels the urge to void but unable to do so. In addition, patient reports constipation. The workup in the emergency department shows a WBC of 13.3, BUN of 46, creatinine of 2.3, GFR of 28, glucose of 272. CT abdomen and pelvis without contrast shows gallstone small bowel dilatation may be related to enteritis. Patient denies fever, chills, nausea, vomiting, abdominal pain, shortness of breath, dizziness, or any other symptoms. In the emergency department, Mcbride catheter has been inserted. In addition, patient received hydralazine 10 mg IV. Patient will be admitted to medical floor for further evaluation and treatment. Patient was seen and examined by bedside with family present. Patient is awake alert able to answer simple questions appropriately. At time of visit patient denies any chest pain or shortness of breadth. Denies any nausea vomiting or abdominal pain. Patient has been voiding after Mcbride catheter has been removed. Patient's serum creatinine level back to baseline. Patient has been cleared by Nephrology for discharge. At this time instructed patient will be getting discharged today and will need to follow up with Nephrology primary care doctor and Urology within 3-5 days upon discharge. Both family and patient voiced understanding agreement plan have no questions at this time The patient was treated for the following problems: ACTIVE PROBLEM LIST FOR THE HOSPITALIZATION: Acute urinary retention S/P Mcbride insertion in ER, resolved Acute kidney injury on CKD, back to baseline CHRONIC PROBLEMS: continue previous management per PCP unless otherwise indicated ANESTHESIOLOGY TECHNOLOGIST FINDINGS/RECOMMENDATIONS: As per Nephrology's follow up outpatient PROCEDURES: as mentioned above DISCHARGE MEDICATIONS: Pt hemodynamically stable and afebrile at time of discharge. PCP notified of patients admission, hospital course and discharge. Continued Medications: Ascorbic Acid (Vitamin C) 500 Mg Tablet 1 TAB PO DAILY for 30 Days, #30 TAB 0 Refills Atorvastatin Calcium (Atorvastatin Calcium) 20 Mg Tablet 1 TAB PO HS for 30 Days, #30 TAB 0 Refills Carvedilol (Carvedilol) 6.25 Mg Tablet 1 TAB PO BID for 30 Days, #60 TAB 0 Refills Dapagliflozin Propanediol (Farxiga) 10 Mg Tablet 1 TAB PO DAILY for 30 Days, #30 TAB 0 Refills Ferrous Sulfate (Iron) 325 Mg (65 Mg Iron) Tablet 1 TAB PO DAILY for 30 Days, #30 TAB 0 Refills Furosemide (Furosemide) 20 Mg Tablet 1 TAB PO DAILY for 30 Days, #30 TAB 0 Refills Hydralazine HCl (Hydralazine HCl) 25 Mg Tablet 1 TAB PO BID for 30 Days, #60 TAB 0 Refills Losartan Potassium (Losartan Potassium) 100 Mg Tablet 1 TAB PO DAILY for 30 Days, #30 TAB 0 Refills Sodium Bicarbonate (Sodium Bicarbonate) 650 Mg Tablet 1 TAB PO BID for indigestion for 30 Days, #60 TAB 0 Refills PHYSICAL EXAM: GENERAL: alert, weak, awake oriented x 3 HEENT: EOMI, Sclera non icteric, moist mucosa NECK: Supple, no JVD, trachea midline LUNGS: Clear breath sounds bilaterally. No wheezes HEART: Regular rate and rhythm. Normal S1 and S2, without murmurs ABD: Abdomen soft, nontender. Bowel sounds present EXT: No clubbing cyanosis or edema NEURO: Alert and oriented to person, follows commands FOLLOW-UP: Follow-up with PCP in 2-3 days Follow up with Nephrology within 3-5 days Follow up with Urology 3-5 days RECOMMENDATIONS: See Discharge Instructions This case was seen and discussed with my supervising physician. 30 minutes spent on discharge process, including evaluation of the patient, discussion with nursing staff, medication reconciliation and follow-up appointments MAURO ARTEAGA May 22, 2024 21:40
== END 2024-05-22 16:17 | disposition home or self-care (01) ==
LOC: EDH 19:50 → EDHIP 05-21 03:07 → EDH 05-21 04:11 → 3CH 05-21 04:20
PROVIDERS: ADMIT Internal Medicine; ATTEND Internal Medicine
DX: N17.9 Acute kidney failure, unspecified (principal); Z20.822 Contact with and (suspected) exposure to COVID-19; I12.9 Hypertensive chronic kidney disease with stage 1 through stage 4 chronic kidney disease, or unspecified chronic kidney disease; E11.22 Type 2 diabetes mellitus with diabetic chronic kidney disease; N18.32 Chronic kidney disease, stage 3b; E11.40 Type 2 diabetes mellitus with diabetic neuropathy, unspecified; E11.65 Type 2 diabetes mellitus with hyperglycemia; K52.9 Noninfective gastroenteritis and colitis, unspecified; K59.00 Constipation, unspecified; K80.20 Calculus of gallbladder without cholecystitis without obstruction; R10.84 Generalized abdominal pain; R33.9 Retention of urine, unspecified; N32.0 Bladder-neck obstruction; D63.1 Anemia in chronic kidney disease; E78.5 Hyperlipidemia, unspecified; Z79.899 Other long term (current) drug therapy; Z86.2 Personal history of diseases of the blood and blood-forming organs and certain disorders involving the immune mechanism
CPT/HCPCS: 80048; 85025; 74176; 96365; 96366 ×2; 96367; 99284; 83036; 84443; 80061; 80053 ×2; 87804 ×2; 82948 ×9; 84153; 87426; 82270; 81001; 36415 ×2; 96361; 83735; 85027; J1815 ×2; G0378 ×37; J7120; J0696 ×2; J3490 ×5; J0360